=== PATIENT | female | born 1995 | race Hispanic/Latino ===

== ENCOUNTER 2018-08-15 23:43 | Emergency (ER) | payer BC, SELFPAY ==
[2018-08-16] MEDS ORDERED: Acetaminophen 500 MG TAB ONE ×2 (00:56)
--- NOTE | 2018-08-16 07:46 | RAD ---
FRadiograph left shoulder 3 views: HISTORY: Traumatic injury to left shoulder FINDINGS: No fracture or dislocation. No high-grade DJD. IMPRESSION: Negative
== END 2018-08-16 01:08 | disposition home or self-care (01) ==
LOC: ERS 23:43
DX: M25.512 Pain in left shoulder (principal); F17.210 Nicotine dependence, cigarettes, uncomplicated